=== PATIENT | male | born 1955 | race Caucasian/White ===

== ENCOUNTER 2019-01-31 08:12 | Day surgery (SDC) | payer BC ==
[2019-01-31] MEDS ORDERED: Midazolam 1 MG/ML 2 ML SDV IV ONE (08:13)
[2019-01-31] MEDS ORDERED: fentaNYL 100 MCG/2 ML SDV IV ONE (08:13)
[2019-01-31] MEDS ORDERED: Sodium Chloride 0.9% 10 ML Syringe IV ONE (08:13)
[2019-01-31] MEDS ORDERED: Lactated Ringers 1,000 ML IV PRN (08:15)
[2019-01-31] MEDS: Sodium Chloride 0.9% 10 ML Syringe FLUSH PRN (09:04)
[2019-01-31 10:37] VITALS: PULSE 58
[2019-01-31 11:10] VITALS: BP 127/69
--- NOTE | 2019-02-01 10:58 | OR ---
DATE OF OPERATION: 01/31/2019 SURGEON: Kassidy Painter MD PREOPERATIVE DIAGNOSIS: Visually significant cataract, right eye. POSTOPERATIVE DIAGNOSIS: Visually significant cataract, right eye. PROCEDURES PERFORMED: Phacoemulsification with intraocular lens placement, right eye. ASSISTANTS: None. ANESTHESIA: Local with sedation. COMPLICATIONS: None. BLOOD LOSS: None. IMPLANTS: Vel AU00T0, 21.5 diopter lens implanted. CDE: 1.02. DESCRIPTION OF PROCEDURE: After risks and benefits were reviewed with the patient, consent was obtained in the preoperative area, and the operative eye was marked with a surgical pen. In the preoperative area, a pledget was used to dilate the pupil consisting of a mixture of phenylephrine 10%, cyclopentolate 2%, moxifloxacin 0.5%, and bupivacaine 0.75%. The patient was taken to the operating room, where a time-out was performed, and the patient was placed under monitored anesthesia care. Topical tetracaine was used for anesthesia. The operative eye was prepped and draped for ophthalmic surgery, and the microscope was brought into position and focussed. A paracentesis incision was made, followed by injection of preservative-free 1% lidocaine into the anterior chamber, followed by injection of Viscoat into the anterior chamber. A microkeratome blade was used to make a corneal limbal incision temporarily. A cystotome was used to make the beginning of the capsulorrhexis, which was carried around 360 degrees in a curvilinear fashion using Utrata forceps. A Mcintosh cannula with BSS was used to hydrodissect and hydrodelineate the nucleus. The nucleus was removed in a divide and conquer manner using phacoemulsification. Irrigation and aspiration were used to remove the remaining cortical material. Provisc was used to inflate the capsular bag, and a pre-loaded Vel AU00T0, 21.5 diopter lens, serial number [id number] was injected into the capsular bag. A Sinskey hook was used to position and center the lens. Next, irrigation and aspiration was used to remove any remaining viscoelastic and cortical material from the anterior chamber. BSS on a cannula was used to inflate the anterior chamber and hydrate the wound. The wound was checked and found to be watertight. 1 mg of Moxifloxacin was injected into the anterior chamber. Drapes were removed and the eye was cleaned. A drop of brimonidine 0.15% and a drop of TobraDex was placed. The eye was shielded, and the patient was taken to the recovery room in stable condition. /[id number] ALONDRA/FLAQUITAL CC: CARLIE EAGLE MD MTDD
== END 2019-01-31 11:11 | disposition home or self-care (01) ==
LOC: FB.SDS 08:12
PROVIDERS: ATTEND Ophthalmology
DX: H26.9 Unspecified cataract (principal); I10 Essential (primary) hypertension; I25.10 Atherosclerotic heart disease of native coronary artery without angina pectoris; E78.5 Hyperlipidemia, unspecified; K21.9 Gastro-esophageal reflux disease without esophagitis; Z79.899 Other long term (current) drug therapy; Z79.82 Long term (current) use of aspirin; Z87.891 Personal history of nicotine dependence
CPT/HCPCS: 66984; J2250; J3010; V2632

== ENCOUNTER 2020-09-05 08:32 | Emergency (ER) | payer BC, MEDICAID ==
--- NOTE | 2020-09-05 09:00 | EDM.PDOC ---
ED HPI GENERAL MEDICAL PROBLEM - General Chief Complaint: Chest Pain Stated Complaint: CHEST TENDERNESS Time Seen by Provider: 09/05/20 08:50 Source of Information: Reports: Patient History Limitations: Reports: No Limitations - History of Present Illness INITIAL COMMENTS - FREE TEXT/NARRATIVE: c/o chest discomfort pt with vague c/w chest discomfort, points to lower sternum, a little to R of sternum, "like a flicker", "like a muscle" present for 1w, not gotten better or worse, both day and night, to bed at 9p and up at 4:30a as usual, discomfort there when he went to bathroom no change with activity, eating or work 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, after positive stress test, denies IA, every stress test since 1999 has been neg including 03/[address] Aguilar, last saw 5-6m ago, no change meds has had COVID vax x 2 FH: father CABG age 80 and age 94, one brother with CABG after a different surgical procedure, another brother in his 50s CHEST Pain Score (Numeric/FACES): 1 - Related Data Allergies Allergy/AdvReac Type Severity Reaction Status Date / Time No Known Allergies Allergy Verified 09/05/20 08:56 Home Meds: Home Meds Aspirin [Adult Low Dose Aspirin EC] 81 mg PO DAILY 02/24/13 [History] Isosorbide Mononitrate [Isosorbide Mononitrate ER] 30 mg PO DAILY 02/24/13 [History] Lisinopril [Zestril] 20 mg PO DAILY 02/24/13 [History] Pantoprazole Sodium [Protonix] 40 mg PO DAILY 02/24/13 [History] atorvaSTATin Calcium [Atorvastatin Calcium] 40 mg PO DAILY 12/14/14 [History] Past Medical History - Past Health History Medical/Surgical History: Denies Medical/Surgical History HEENT History: Reports: Impaired Vision Cardiovascular History: Reports: CAD, High Cholesterol, Hypertension Respiratory History: Reports: None Gastrointestinal History: Reports: GERD Genitourinary History: Reports: None 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 Other Musculoskeletal History: DECREASED ROM IN LEFT SHOULDER Neurological History: Reports: None Psychiatric History: Reports: None Endocrine/Metabolic History: Reports: Obesity/BMI 30+ Hematologic History: Reports: None Immunologic History: Reports: None Oncologic (Cancer) History: Reports: None Dermatologic History: Reports: None - Past Surgical History Head Surgeries/Procedures: Reports: None HEENT Surgical History: Reports: None Cardiovascular Surgical History: Reports: Coronary Artery Stent Respiratory Surgical History: Reports: None GI Surgical History: Reports: Colonoscopy Endocrine Surgical History: Reports: None Neurological Surgical History: Reports: None Musculoskeletal Surgical History: Reports: Other (See Below) Other Musculoskeletal Surgeries/Procedures:: MAEVE Oncologic Surgical History: Reports: None Dermatological Surgical History: Reports: None Social & Family History - Tobacco Use Tobacco Use Status *Q: Former Tobacco User Used Tobacco, but Quit: Yes Month/Year Tobacco Last Used: 1999 - Caffeine Use Caffeine Use: Reports: Coffee - Alcohol Use Days Per Week of Alcohol Use: 7 Number of Drinks Per Day: 1 Total Drinks Per Week: 7 - Recreational Drug Use Recreational Drug Use: No ED ROS GENERAL - Review of Systems Review Of Systems: See Below Constitutional: Reports: No Symptoms HEENT: Reports: No Symptoms Respiratory: Reports: No Symptoms Cardiovascular: Reports: Chest Pain Endocrine: Reports: No Symptoms GI/Abdominal: Reports: No Symptoms : Reports: No Symptoms Musculoskeletal: Reports: No Symptoms Skin: Reports: No Symptoms Neurological: Reports: No Symptoms Psychiatric: Reports: No Symptoms Hematologic/Lymphatic: Reports: No Symptoms Immunologic: Reports: No Symptoms ED EXAM, GENERAL - Physical Exam Exam: See Below Exam Limited By: No Limitations General Appearance: Alert, WD/WN, No Apparent Distress Ears: Normal External Exam, Hearing Grossly Normal Nose: Normal Inspection Throat/Mouth: Normal Inspection, Normal Lips, Normal Teeth, Normal Oropharynx, Normal Voice Head: Atraumatic, Normocephalic Neck: Normal Inspection, Supple, Non-Tender, Full Range of Motion Respiratory/Chest: No Respiratory Distress, Lungs Clear, Normal Breath Sounds, Chest Non-Tender Cardiovascular: Regular Rate, Rhythm, No Edema, No Murmur, No Rub GI/Abdominal: Normal Bowel Sounds, Soft, Non-Tender, No Distention Back Exam: Normal Inspection, Full Range of Motion Extremities: Normal Inspection, Normal Range of Motion, Non-Tender, No Pedal Edema, Normal Capillary Refill Neurological: Alert, Oriented, CN II-XII Intact, Normal Cognition, No Motor/Sensory Deficits Psychiatric: Normal Affect, Normal Mood Skin Exam: Warm, Dry, Intact, Normal Color, No Rash Lymphatic: No Adenopathy #1 Interpretation EKG Date: 09/05/20 Time: 08:38 Rhythm: NSR Harlan: Normal P-Wave: Present QRS: Normal ST-T: Normal QT: Normal Comparison: No Change (no ischemic change) #2 Interpretation EKG Date: 09/05/20 Time: 09:47 Harlan: Normal P-Wave: Present QRS: Normal ST-T: Normal (sudden diaphoresis, dec'd HR 91 to 56, no ectopy, more prominent inverted T-wave in III, no acute changes, no active ischemia) Course - Vital Signs Last Recorded V/S: Last Vital Signs Temp 36.8 C 09/05/20 09:32 Pulse 78 09/05/20 08:35 Resp 11 L 09/05/20 09:32 BP 150/88 H 09/05/20 09:32 Pulse Ox 99 09/05/20 09:32 - Orders/Labs/Meds Orders: Active Orders 24 hr Category Date Time Status EKG Documentation Completion [RC] ASDIRECTED Care 09/05/20 08:35 Active EKG Documentation Completion [RC] ASDIRECTED Care 09/05/20 09:48 Ordered Ang Abdomen [CT] Stat Exams 09/05/20 10:15 Ordered Ang Chest [CT] Stat Exams 09/05/20 10:17 Ordered TROPONIN I [CHEM] Stat Lab 09/05/20 10:36 Ordered Norepinephrine [Levophed] 4 mg Med 09/05/20 10:15 Active Dextrose 5% in Water 246 ml IV TITRATE Sodium Chloride 0.9% [Normal Saline] 1,000 ml Med 09/05/20 09:55 Ordered IV .BOLUS EKG 12 Lead [EK] Routine Ther 09/05/20 08:35 Ordered EKG 12 Lead [EK] Routine Ther 09/05/20 09:48 Ordered Medication Orders Sodium Chloride (Normal Saline) 1,000 mls @ 999 mls/hr IV .BOLUS ONE Stop: 09/05/20 10:55 Norepinephrine Bitartrate 4 mg (/ Dextrose/Water) 250 mls @ 7.5 mls/hr IV TITRATE KAREN; Protocol Labs: Laboratory Tests 09/05/20 09/05/20 09/05/20 Range/Units 09:25 09:25 09:25 WBC 6.1 (3.2-10.1) x10-3/uL RBC 4.69 (3.90-5.90) x10(6)uL Hgb 14.3 (12.9-17.7) g/dL Hct 42.9 (38.3-50.1) % MCV 91.4 (80.8-98.7) fL MCH 30.6 (27.0-33.3) pg MCHC 33.4 (28.7-35.3) g/dL RDW 13.4 (12.4-15.0) % Plt Count 178 (117-477) x10(3)uL MPV 7.6 (6.7-11.0) fL Neut % (Auto) 72.8 H (40.3-71.8) % Lymph % (Auto) 18.6 (15.8-45.3) % [place] % (Auto) 6.5 (5.5-15.2) % Eos % (Auto) 1.8 (0.1-6.8) % Baso % (Auto) 0.3 (0.3-3.8) % Neut # (Auto) 4.4 (1.7-6.9) x10-3/uL Lymph # (Auto) 1.1 (0.5-4.5) x10-3/uL [place] # (Auto) 0.4 (0.0-1.2) x10-3/uL Eos # (Auto) 0.1 (0.0-0.6) x10-3/uL Baso # (Auto) 0.0 (0.0-0.3) x10-3/uL D-Dimer, Quantitative 0.85 H (0.0-0.59) mg/LFEU Sodium 136 (135-145) mmol/L Potassium 4.6 (3.5-5.3) mmol/L Chloride 99 L (100-110) mmol/L Carbon Dioxide 29 (21-32) mmol/L BUN 19 H (7-18) mg/dL Creatinine 1.2 (0.70-1.30) mg/dL Est Cr Clr Drug Dosing 60.55 mL/min Estimated GFR (MDRD) > 60 (>60) BUN/Creatinine Ratio 15.8 (9-20) Glucose 123 H (80-116) mg/dL Calcium 8.7 (8.6-10.2) mg/dL Total Bilirubin 0.5 (0.1-1.3) mg/dL AST 39 H (5-25) IU/L ALT 61 H (12-36) U/L Alkaline Phosphatase 82 (56-112) IU/L Troponin I (4.0-60.3) pg/mL C-Reactive Protein (0.5-0.9) mg/dL Total Protein 8.4 H (6.0-8.0) g/dL Albumin 4.4 (3.2-4.6) g/dL Globulin 4.0 g/dL Albumin/Globulin Ratio 1.1 // Range/Units 09:25 WBC (3.2-10.1) x10-3/uL RBC (3.90-5.90) x10(6)uL Hgb (12.9-17.7) g/dL Hct (38.3-50.1) % MCV (80.8-98.7) fL MCH (27.0-33.3) pg MCHC (28.7-35.3) g/dL RDW (12.4-15.0) % Plt Count (117-477) x10(3)uL MPV (6.7-11.0) fL Neut % (Auto) (40.3-71.8) % Lymph % (Auto) (15.8-45.3) % [place] % (Auto) (5.5-15.2) % Eos % (Auto) (0.1-6.8) % Baso % (Auto) (0.3-3.8) % Neut # (Auto) (1.7-6.9) x10-3/uL Lymph # (Auto) (0.5-4.5) x10-3/uL [place] # (Auto) (0.0-1.2) x10-3/uL Eos # (Auto) (0.0-0.6) x10-3/uL Baso # (Auto) (0.0-0.3) x10-3/uL D-Dimer, Quantitative (0.0-0.59) mg/LFEU Sodium (135-145) mmol/L Potassium (3.5-5.3) mmol/L Chloride (100-110) mmol/L Carbon Dioxide (21-32) mmol/L BUN (7-18) mg/dL Creatinine (0.70-1.30) mg/dL Est Cr Clr Drug Dosing mL/min Estimated GFR (MDRD) (>60) BUN/Creatinine Ratio (9-20) Glucose (80-116) mg/dL Calcium (8.6-10.2) mg/dL Total Bilirubin (0.1-1.3) mg/dL AST (5-25) IU/L ALT (12-36) U/L Alkaline Phosphatase (56-112) IU/L Troponin I 9.0 (4.0-60.3) pg/mL C-Reactive Protein < 0.2 L (0.5-0.9) mg/dL Total Protein (6.0-8.0) g/dL Albumin (3.2-4.6) g/dL Globulin g/dL Albumin/Globulin Ratio Meds: Medications Generic Name Dose Route Start Last Admin Trade Name Bijal PRN Reason Stop Dose Admin Sodium Chloride 1,000 mls @ 999 mls/hr 09/05/20 09:55 Normal Saline IV 09/05/20 10:55 .BOLUS ONE Norepinephrine Bitartrate 4 mg 250 mls @ 7.5 mls/hr 09/05/20 10:15 / Dextrose/Water IV TITRATE KAREN Protocol 2 MCG/MIN Discontinued Medications Generic Name Dose Route Start Last Admin Trade Name Bijal PRN Reason Stop Dose Admin Aspirin 243 mg 09/05/20 10:42 Aspirin 81 Mg Tab.Chew PO 09/05/20 10:43 ONETIME ONE Al Hydroxide/Mg Hydroxide 30 0 ml 09/05/20 09:17 09/05/20 09:24 ml/ Lidocaine HCl 15 ml PO 09/05/20 09:18 45 ml ONETIME ONE Administration Iopamidol 100 ml 09/05/20 10:24 Iopamidol 755 Mg/Ml 100 Ml Bottle IV 09/05/20 10:25 . DIRECTED ONE - Re-Assessments/Exams Free Text/Narrative Re-Assessment/Exam: 05/27/21 10:53 pt with atypical 1/10 CP x 1w, stable here, 1st trop neg GI cocktail given empirically, when I went to ask him if the GI cocktail had helped he said that he was sweaty and did indeed have a damp forehead EKG immediately obtained, placed in Trendelenburg, had SR [address] changes except more prominent t-wave in III only HR dec'd to 38 and BP dec'd to 63/43, given atropine 1 mg IV and HR inc'd 92 and BP returned to baseline POCUS with normal diameter abd aorta CxR 1v with rounded mass behind heart at base c/w HH (Dr Ryan could not exclude aneurysm) chest/abd CTA done just prior to arrival flight crew 2nd trop pending d/w Dr Lowe at [facility] ED who requested direct admit to PCU, Dr Lowe suspected an undeclared NSTEMI, stunned myocardium from ischemia vs possible aneurysm are likely dx pt asxs as he left the ED with flight crew Etienne assisted with documentation and arranging flight crew 09/05/20 11:05 angio of chest/abd with no aneurysm and no PE as per Dr Ryan, no HH, fat noted behind heart, images pushed to [facility] Departure - Departure Time of Disposition: 10:44 Disposition: DC/Tfer to Acute Hospital 02 Reason for Transfer *Q: Other (transfer to PCU requested by Dr Lowe at [facility]) Condition: Good Clinical Impression: Cardiogenic shock, Elevated d-dimer, Sinus bradycardia, Nonspecific chest pain, Renal insufficiency, Elevated liver function tests, Elevated total protein Referrals: Erwin Aguilar MD [Primary Care Provider] - Forms: ED Department Discharge Sepsis Event Note (ED) - Focused Exam Vital Signs: Vital Signs Temp Pulse Resp BP Pulse Ox 09/05/20 09:32 36.8 C 11 L 150/88 H 99 09/05/20 09:15 11 L 172/89 H 99 09/05/20 09:00 12 163/86 H 98 09/05/20 08:45 15 146/86 H 99 09/05/20 08:35 78 12 148/88 H 98 - My Orders Last 24 Hours: My Active Orders 09/05/20 08:35 EKG Documentation Completion [RC] ASDIRECTED EKG 12 Lead [EK] Routine 09/05/20 09:48 EKG Documentation Completion [RC] ASDIRECTED EKG 12 Lead [EK] Routine 09/05/20 09:55 Sodium Chloride 0.9% [Normal Saline] 1,000 ml IV .BOLUS 09/05/20 10:15 Ang Abdomen [CT] Stat Norepinephrine [Levophed] 4 mg Dextrose 5% in Water 246 ml IV TITRATE 09/05/20 10:17 Ang Chest [CT] Stat 09/05/20 10:36 TROPONIN I [CHEM] Stat - Assessment/Plan Last 24 Hours: My Active Orders 09/05/20 08:35 EKG Documentation Completion [RC] ASDIRECTED EKG 12 Lead [EK] Routine 09/05/20 09:48 EKG Documentation Completion [RC] ASDIRECTED EKG 12 Lead [EK] Routine 09/05/20 09:55 Sodium Chloride 0.9% [Normal Saline] 1,000 ml IV .BOLUS 09/05/20 10:15 Ang Abdomen [CT] Stat Norepinephrine [Levophed] 4 mg Dextrose 5% in Water 246 ml IV TITRATE 09/05/20 10:17 Ang Chest [CT] Stat 09/05/20 10:36 TROPONIN I [CHEM] Stat
[2020-09-05 09:01] VITALS: PULSE 78
[2020-09-05] MEDS ORDERED: Alum Hydroxide/Mag Hydroxide 30 ML, Lidocaine 2% 15 ML PO ONE ×2 (09:17)
[2020-09-05] MEDS ORDERED: Sodium Chloride 0.9% 1,000 ML IV ONE ×2 (09:55→10:05)
[2020-09-05] MEDS ORDERED: Atropine 0.1 MG/ML 10 ML Syringe IVPUSH ONE (09:55)
[2020-09-05] MEDS ORDERED: Atropine 0.4 MG/ML SDV IVPUSH ONE (10:00)
[2020-09-05] MEDS ORDERED: Norepinephrine 4 MG in Dextrose 5% in Water 246 ML IV SCH ×2 (10:15)
[2020-09-05] MEDS ORDERED: Iopamidol 755 Mg/ML 100 ML Bottle IV ONE (10:24)
[2020-09-05] MEDS ORDERED: Aspirin 81 MG Tab.Chew PO ONE (10:42)
--- NOTE | 2020-09-05 10:47 | CR ---
INDICATION: Hypotensive incident. CHEST ONE VIEW: Portable AP supine view of the chest was obtained 09/05/20 and compared with 04/18/11 and 01/12/08. There is a bulge behind the heart on the left which could represent a fixed hiatal hernia or even a mass. An aortic aneurysm is felt to be less likely with this appearance since the edge of the aorta appears to be well delineated. Bony structures are grossly intact An active infiltrate or effusion was not identified. Upper lung field pulmonary vasculature is somewhat prominent compatible with supine imaging. Overlying EKG leads are noted. IMPRESSION: No definite acute process. However, there does appear to be a new rounded mass at the diaphragm behind the heart on the left, etiology indeterminate. CT would be confirmatory. The possibly of an aneurysm of the aorta is felt to be less likely than a mass or hiatal hernia. Report was called to Dr. Thornton at 1021 hours, 09/05/20. STAN
--- NOTE | 2020-09-05 12:01 | CT ---
INDICATION: Sudden hypertension, increased D-dimer, question aneurysm. D-dimer is 0.85. CT ANGIOGRAPHY OF THE CHEST AND ABDOMEN: Spiral 3.75 mm axial sections were obtained through the chest and abdomen with sagittal and coronal reconstructions and axial reconstructions 09/05/20 utilizing 100 mL Isovue-370 at 4 mL/second in a patient with 20 pack-year history. No comparison study are available. Total exam DLP was 1249.48 mGy-cm. The aorta, both thoracic and abdominal was well visualized. CTA CHEST: Examination of the chest was obtained. No comparisons. Minimal apical scarring is noted. Fibrotic appearing changes are mild throughout the lungs with some emphysematous appearing changes also noted. However, an active infiltrate or effusion was not identified. No mediastinal mass was noted. The heart is at the upper limits of normal in size. No pericardial effusion was seen. No evidence of pulmonary emboli could be identified. The aorta showed evidence of calcification in the arch minimally and also in the descending thoracic aorta with no evidence of aneurysmal dilatation or stenosis. IMPRESSION: 1. No evidence of definite PE, although study was not ideal for pulmonary artery visualization, or thoracic aortic aneurysm. 2. Fibrotic and emphysematous changes of mild degree. CTA ABDOMEN: Examination of the abdomen revealed the upper abdominal organs to be unremarkable except for relatively low density liver suggesting fatty liver. Calcifications are noted in the abdominal aorta and iliac arteries. No significant aneurysmal dilatation was identified. There is a slight bulge of the distal abdominal aorta measuring approximately 25 mm with no leakage in that area or definite interval dissection. This is below aneurysmal dilatation in size. No retroperitoneal masses were seen. The appendix appeared normal visualized on axial images 102 through 118, series 2. The adrenal glands appeared normal as did the spleen and the pancreas. The left kidney was negative for mass lesions with mild renal cortical scarring. The right kidney showed evidence of a very tiny low density lesion, possibly a cyst at the lower pole of the right kidney and a larger probable simple cyst at the lower middle pole cortex laterally which measured approximately 22 mm. Renal cortical scarring is also noted on the right. No obstructive uropathy was suggested. No evidence of free air or bowel obstruction was seen. A tiny umbilical hernia including only fat was noted. No additional organomegaly, mass lesions or free fluid collections were identified in the abdomen. IMPRESSION: 1. Atherosclerotic changes are noted without evidence of significant aneurysmal dilatation. Distal abdominal aorta measured maximum of 25 mm. 2. Slightly low density liver raises question of fatty liver. 3. Renal cortical scarring and minimal cystic changes on the right. Minimal renal cortical scarring on the left. 4. Localized eventration with fat [id number] a mass behind the heart on the left with eventration extending into the lower lung field on the left. 5. Degenerative hypertrophic changes at L4 through S1 with disc disease at L4- L5 and L5-S1. 6. Minimal diverticulosis coli without evidence of diverticulitis. Report was given by phone to Dr. Thornton at 1105 hours. [facility]
[2020-09-05 13:50] VITALS: BP 137/87
== END 2020-09-05 10:50 ==
LOC: FB.ED 08:32
DX: R57.0 Cardiogenic shock (principal); R00.1 Bradycardia, unspecified; R79.89 Other specified abnormal findings of blood chemistry; N28.9 Disorder of kidney and ureter, unspecified; E66.9 Obesity, unspecified; I25.10 Atherosclerotic heart disease of native coronary artery without angina pectoris; E78.00 Pure hypercholesterolemia, unspecified; I10 Essential (primary) hypertension; Z68.30 Body mass index [BMI] 30.0-30.9, adult; Z79.82 Long term (current) use of aspirin; Z79.899 Other long term (current) drug therapy; Z87.891 Personal history of nicotine dependence
CPT/HCPCS: 36415; 71045; 71275; 74175; 80053; 84484; 85025; 85379; 86140; 93005; 96374; 99285-25; A9270-GY; J0461; J7030; Q9967

== ENCOUNTER 2021-06-20 13:51 | Emergency (ER) | payer BC ==
[2021-06-20] MEDS ORDERED: Pantoprazole 80 MG in Sodium Chloride 0.9% 100 ML IV SCH (14:15)
[2021-06-20] MEDS ORDERED: Sodium Chloride 0.9% 1,000 ML IV SCH (14:15)
[2021-06-20 14:35] LABS: ESTIMATED GFR > 60 (>60)
[2021-06-20] MEDS ORDERED: Pantoprazole 40 MG Vial IVPUSH ONE (14:56)
[2021-06-20 17:27] VITALS: BP 121/81; PULSE 59
== END 2021-06-20 17:44 ==
LOC: FB.ED 13:51
DX: K92.2 Gastrointestinal hemorrhage, unspecified (principal); I95.9 Hypotension, unspecified; I25.10 Atherosclerotic heart disease of native coronary artery without angina pectoris; E78.00 Pure hypercholesterolemia, unspecified; I10 Essential (primary) hypertension; K21.9 Gastro-esophageal reflux disease without esophagitis; E66.9 Obesity, unspecified; Z79.82 Long term (current) use of aspirin; Z79.899 Other long term (current) drug therapy; Z68.29 Body mass index [BMI] 29.0-29.9, adult
CPT/HCPCS: 36415; 80053; 83880; 85025; 85610; 86850; 86900; 86901; 96374; 99284; C9113; J7030

== ENCOUNTER 2022-03-24 02:58 | Emergency (ER) | payer BC ==
[2022-03-24 04:48] LABS: ESTIMATED GFR 82 mL/min (>60)
[2022-03-24 06:06] VITALS: BP 149/92; PULSE 59
== END 2022-03-24 05:23 | disposition home or self-care (01) ==
LOC: FB.ED 02:58
DX: R20.2 Paresthesia of skin (principal); I25.10 Atherosclerotic heart disease of native coronary artery without angina pectoris; I10 Essential (primary) hypertension; E78.00 Pure hypercholesterolemia, unspecified; K21.9 Gastro-esophageal reflux disease without esophagitis; E66.9 Obesity, unspecified; Z68.29 Body mass index [BMI] 29.0-29.9, adult; Z79.899 Other long term (current) drug therapy
CPT/HCPCS: 36415; 70450; 71045; 80053; 84484; 85025; 85379; 93005; 99284

== ENCOUNTER 2023-09-27 07:00 | Emergency (ER) | payer BC ==
[2023-09-27] MEDS: Sodium Chloride 0.9% 1,000 ML IV ONE (07:00)
[2023-09-27 07:16] LABS: HEMATOCRIT 37.8 % (38.3-50.1); MEAN CORPUSCULAR HEMOGLOBIN 30.1 pg (27.0-33.3); MEAN CORPUSCULAR HGB CONC 31.7 g/dL (28.7-35.3); MEAN CORPUSCULAR VOLUME 95.2 fL (80.8-98.7); MEAN PLATELET VOLUME 7.7 fL (6.7-11.0); PLATELET COUNT,PLT 182 x10(3)uL (117-477); RED BLOOD CELL COUNT 3.97 x10(6)uL (3.90-5.90); WHITE BLOOD CELL COUNT,WBC 10.8 x10-3/uL (3.2-10.1)
[2023-09-27 07:20] LABS: BLOOD UREA NITROGEN,BUN 20 mg/dL (7-18); BUN/CREATININE RATIO 11.8 (9-20); CALCIUM 8.2 mg/dL (8.6-10.2); CARBON DIOXIDE,CO2 21 mmol/L (21-32); CHLORIDE,CL 103 mmol/L (100-110); CREATININE 1.7 mg/dL (0.70-1.30); ESTIMATED GFR 43 mL/min (>60); GLUCOSE RANDOM 277 mg/dL (80-116); POTASSIUM,K 3.3 mmol/L (3.5-5.3); SODIUM,NA 141 mmol/L (135-145)
[2023-09-27 07:21] LABS: BASE EXCESS VENOUS,POC -17 mmol/L (-2 - 3+); PH VENOUS,POC 6.96 pH Units (7.32-7.43)
[2023-09-27 07:22] LABS: PCO2 VENOUS,POC 68 mmHg (41-51)
[2023-09-27 07:31] LABS: ALKALINE PHOSPHATASE 73 IU/L (56-112); ASPARTATE AMNIOTRANSFERASE,AST 144 IU/L (5-25); BILIRUBIN TOTAL 0.3 mg/dL (0.1-1.3); PROTEIN TOTAL,TP 6.1 g/dL (6.0-8.0); TROPONIN I 8.6 pg/mL (4.0-60.3)
[2023-09-27 07:34] LABS: ALANINE AMINOTRANSFERASE,ALT 207 U/L (12-36); LYMPHOCYTES PERCENT MAN 62 % (13-37); MONOCYTES PERCENT MAN 6 % (4-12); SEG NEUTROPHILS PERCENT MAN 32 % (46-82)
[2023-09-27 07:35] LABS: BILIRUBIN,URINE NEGATIVE (NEGATIVE); GLUCOSE,URINE NORMAL (NORMAL); KETONES,URINE NEGATIVE (NEGATIVE); LEUKOCYTE ESTERASE,URINE NEGATIVE (NEGATIVE); NITRITE,URINE NEGATIVE (NEGATIVE); OCCULT BLOOD,URINE TRACE (NEGATIVE); PROTEIN,URINE NEGATIVE (NEGATIVE); UROBILINOGEN,URINE NORMAL (NEGATIVE)
[2023-09-27 07:36] LABS: APPEARANCE,URINE CLEAR (CLEAR); COLOR,URINE YELLOW (YELLOW); RBC,URINE 0-5 (0-5); SQUAMOUS EPITHELIAL CELLS,UR OCCASIONAL (NS,R,O); WBC,URINE 0-5 (0-5)
[2023-09-27 07:37] LABS: BACTERIA,URINE FEW (NS); SPERM,URINE FEW (NS)
[2023-09-27 07:48] LABS: INR 1.01 (1.00-1.24); PROTHROMBIN TIME 10.5 sec (9.0-11.1); PTT,PARTIAL THROMBOPLSTIN TIME 25.2 SECONDS (24.4-33.2)
== END 2023-09-27 08:21 ==
LOC: FB.ED 07:00
DX: I46.9 Cardiac arrest, cause unspecified (principal); I10 Essential (primary) hypertension; I25.10 Atherosclerotic heart disease of native coronary artery without angina pectoris; E78.00 Pure hypercholesterolemia, unspecified; E66.9 Obesity, unspecified; Z79.82 Long term (current) use of aspirin; Z79.899 Other long term (current) drug therapy
CPT/HCPCS: 36415; 71045; 80053; 81001; 83690; 84484; 85025; 85610; 85730; 92950; 93005; 99285; J7030